=== PATIENT | female | born 1985 | race African-American/Black ===

== ENCOUNTER 2016-10-31 20:00 | Emergency (ER) | payer MEDICAID ==
[~2016-10-31] VITALS: Ht 162.6 cm; Wt 56.7 kg
[~2016-10-31 20:00] MED LIST: FLAGYL500 MG ORAL; KEFLEX500 MG ORAL; NKM
[2016-10-31] MEDS ORDERED: BENTYL10 MG ORAL (20:47)
--- NOTE | 2016-10-31 20:47 | Emergency Room Report ---
History of Present Illness General Chief Complaint: Abdominal Pain Source: Patient Present Illness HPI Patient is a 28-year-old female who presented after increased left lower abdominal pain. Patient gradual onset of symptoms of the past 3 days. She had associated increased constipation. She denied any recent fever. She reported having some recent. Patient denied any vomiting or diarrhea she denied any black or bloody stools. The patient's history of prior history of ovarian cyst. Patient to prior but no other abdominal surgery. The patient denied any other locations of pain. Allergies: Coded Allergies: No Known Allergies (Unverified , 10/31/16) Patient History Past Medical History: see triage record Last Menstrual Period: october 13 : 5 Para: 2 Reviewed Nursing Documentation: PMH: Agreed, PSxH: Agreed Nursing Documentation-PMH Past Medical History: No Stated History Review of Systems All Other Systems: negative except mentioned in HPI Physical Exam Vital Signs Date Time Temp Pulse Resp B/P Pulse Ox O2 Delivery O2 Flow Rate FiO2 10/31/16 20:10 97.9 80 16 123/77 99 Room Air Sp02 EP Interpretation: reviewed, normal General Appearance: normal inspection, well appearing, no apparent distress, alert, GCS 15 Head: atraumatic ENT: normal ENT inspection, hearing grossly normal, normal voice Neck: normal inspection, full range of motion, supple, no bony tend Respiratory: normal inspection, lungs clear, normal breath sounds, no respiratory distress, no retraction, no wheezing Cardiovascular #1: regular rate, rhythm, no edema Gastrointestinal: normal inspection, normal bowel sounds, non tender, soft, no guarding, no hernia Genitourinary: no CVA tenderness Musculoskeletal: normal inspection, back normal, normal range of motion Neurologic: normal inspection, alert, oriented x3, responsive, appliquer zigzag III-XII nml as tested, motor strength/tone normal, speech normal Psychiatric: normal inspection, judgement/insight normal, mood/affect normal Skin: normal inspection, normal color, no rash Medical Decision Making Diagnostic Impression: Primary Impression: Abdominal pain Additional Impression: Ovarian cyst ER Course Patient presented for abdominal pain. Differential diagnoses included ischemic bowel, appendicitis, perforated viscus, abdominal aortic aneurysm, inferior myocardial infarction, viral gastroenteritis Because of complexity of patient's case laboratory testing and imaging studies were ordered.The laboratory testing was otherwise unremarkable.The pelvic ultrasound showed a 1 cm ovarian cyst with small amount of pelvic fluid . The patient noted have an otherwise benign exam. Patient was given prescription for ibuprofen and Bentyl. The patient is advised to follow up with [facility] in 1- 2 days. Patient is advised to return if any worsening condition or if any changes in status that are concerning. Labs Test 10/31/16 20:33 10/31/16 21:00 Urine Color Yellow Urine Appearance Clear Urine pH 6 (4.5-8.0) Urine Specific [place] 1.020 (1.005-1.035) Urine Protein Negative (NEGATIVE) Urine Glucose (UA) Negative (NEGATIVE) Urine Ketones Negative (NEGATIVE) Urine Occult Blood Negative (NEGATIVE) Urine Nitrite Negative (NEGATIVE) Urine Bilirubin Negative (NEGATIVE) Urine Urobilinogen 1 MG/DL (0.0-1.0) Urine Leukocyte Esterase Negative (NEGATIVE) Urine HCG, Qualitative Negative White Blood Count 7.8 K/UL (4.8-10.8) Red Blood Count 3.82 M/UL (4.20-5.40) Hemoglobin 12.6 G/DL (12.0-16.0) Hematocrit 37.3 % (37.0-47.0) Mean Corpuscular Volume 98 FL (80-99) Mean Corpuscular Hemoglobin 32.9 PG (27.0-31.0) Mean Corpuscular Hemoglobin Concent 33.7 G/DL (32.0-36.0) Red Cell Distribution Width 12.1 % (11.6-14.8) Platelet Count 209 K/UL (150-450) Mean Platelet Volume 7.8 FL (6.5-10.1) Neutrophils (%) (Auto) 50.7 % (45.0-75.0) Lymphocytes (%) (Auto) 33.7 % (20.0-45.0) Monocytes (%) (Auto) 8.1 % (1.0-10.0) Eosinophils (%) (Auto) 6.5 % (0.0-3.0) Basophils (%) (Auto) 1.0 % (0.0-2.0) Sodium Level 137 mEQ/L (135-145) Potassium Level 3.8 mEQ/L (3.4-4.9) Chloride Level 97 mEQ/L (98-107) Carbon Dioxide Level 27 mEQ/L (20-30) Anion Gap 13 (5-15) Blood Urea Nitrogen 12 mg/dL (7-23) Creatinine 1.1 mg/dL (0.5-0.9) Estimat Glomerular Filtration Rate > 60 mL/min (>60) Glucose Level 96 mg/dL (74-106) Calcium Level 8.8 mg/dL (8.6-10.2) Total Bilirubin < 0.2 mg/dL (0.0-1.2) Aspartate Amino Transf (AST/SGOT) 12 U/L (5-40) Alanine Aminotransferase (ALT/SGPT) 7 U/L (3-33) Alkaline Phosphatase 57 U/L (35-104) Total Protein 6.6 g/dL (6.6-8.7) Albumin 3.8 g/dL (3.5-5.2) Globulin 2.8 g/dL Albumin/Globulin Ratio 1.3 (1.0-2.7) Lipase 56 U/L (< 60) Last Vital Signs Date Time Temp Pulse Resp B/P Pulse Ox O2 Delivery O2 Flow Rate FiO2 10/31/16 20:10 97.9 80 16 123/77 99 Room Air Status: improved Disposition: HOME, SELF-CARE Condition: Stable Scripts Ibuprofen* (MOTRIN*) 600 Mg Tablet 600 MG ORAL Q8H Y for For Pain, #30 TAB 0 Refills Prov: Raymundo Allan 10/31/16 Dicyclomine Hcl* (BENTYL*) 10 Mg Capsule 10 MG ORAL FOUR TIMES A DAY, #20 CAP Prov: Raymundo Allan 10/31/16 Raymundo Allan October 31, 2016 20:47
[2016-10-31 20:56] LABS: APPEARANCE,URINE CLEAR; KETONES,URINE NEGATIVE (NEGATIVE); LEUKOCYTE ESTERASE ,URINE NEGATIVE (NEGATIVE); NITRITE,URINE NEGATIVE (NEGATIVE); PH,URINE 6 (4.5-8.0); PROTEIN,URINE NEGATIVE (NEGATIVE); UROBILINOGEN,URINE 1 MG/DL (0.0-1.0)
[2016-10-31 21:30] LABS: EOSINOPHILS % (AUTO) 6.5 % (0.0-3.0); LYMPHOCYTES % (AUTO) 33.7 % (20.0-45.0); MEAN CORPUSCULAR HEMOGLOBIN 32.9 PG (27.0-31.0); MEAN CORPUSCULAR HGB CONC 33.7 G/DL (32.0-36.0); MEAN CORPUSCULAR VOLUME 98 FL (80-99); MEAN PLATELET VOLUME 7.8 FL (6.5-10.1); MONOCYTES % (AUTO) 8.1 % (1.0-10.0); NEUTROPHILS % (AUTO) 50.7 % (45.0-75.0); PLATELET COUNT 209 K/UL (150-450); RED BLOOD COUNT 3.82 M/UL (4.20-5.40); RED CELL DISTRIBUTION WIDTH 12.1 % (11.6-14.8); WHITE BLOOD COUNT 7.8 K/UL (4.8-10.8)
[2016-10-31 21:41] LABS: ALANINE AMINOTRANSFERASE 7 U/L (3-33); ALBUMIN/GLOBULIN RATIO 1.3 (1.0-2.7); ANION GAP 13 (5-15); ASPARTATE AMINO TRANSFERASE 12 U/L (5-40); CALCIUM 8.8 mg/dL (8.6-10.2); CARBON DIOXIDE 27 mEQ/L (20-30); CHLORIDE 97 mEQ/L (98-107); CREATININE 1.1 mg/dL (0.5-0.9); GLOMERULAR FILTRATION RATE > 60 mL/min (>60); HEMOLYSIS 4; LIPASE 56 U/L (< 60); POTASSIUM 3.8 mEQ/L (3.4-4.9); SODIUM 137 mEQ/L (135-145); TOTAL PROTEIN 6.6 g/dL (6.6-8.7)
[2016-10-31] MEDS ORDERED: IBUPROFEN600 MG ORAL (22:02)
[2016-10-31 22:13] VITALS: BP 123/77
--- NOTE | 2016-11-01 12:39 | Diagnostic Imaging Report ---
Indications: Pelvic pain, LMP 10/07/2016 Technique: Transabdominal and transvaginal real-time grayscale and duplex Doppler imaging of the pelvis was performed. Findings: Comparison: CT abdomen pelvis 03/26/16 Uterus measures 8.1 x 4.3 x 3.6cm. It demonstrates normal contour and myometrial echotexture without focal abnormality. The endometrial complex measures 7 mm in diameter. It contains a linear echogenic shadowing focus centrally but is otherwise unremarkable in appearance.. Small cysts are present the cervix. Bone free fluid is present in the cul-de-sac. Right ovary measures 3.1 x 2.6 x 1.4 cm. It contains one or more small peripheral follicles. Duplex Doppler imaging demonstrates normal blood flow. No extra-ovarian abnormality is seen. Left ovary measures 3 x 1.8 x 1.7 cm. It contains a dominant cystic structure measuring 1 cm diameter, several additional small peripheral follicles. Duplex Doppler imaging demonstrates normal blood flow. No extra-ovarian abnormality is seen. IMPRESSION: 1 cm left ovarian cystic structure, likely dominant follicle/physiologic cyst IUD in uterine endometrial canal Cervical nabothian cysts Small amount pelvic free fluid, nonspecific, may be physiologic
== END 2016-10-31 22:19 | disposition home or self-care (01) ==
LOC: EMR 20:55
DX: R10.32 Left lower quadrant pain (principal); N83.202 Unspecified ovarian cyst, left side; Z97.5 Presence of (intrauterine) contraceptive device; N88.8 Other specified noninflammatory disorders of cervix uteri
CPT/HCPCS: 36415; 76830; 76856; 80053; 81003; 81025; 83690; 85025; 99284

== ENCOUNTER 2016-11-29 17:33 | Emergency (ER) | payer MEDICAID ==
[~2016-11-29] VITALS: Ht 162.6 cm; Wt 52.2 kg
[~2016-11-29 17:33] MED LIST changes: +BENTYL10 MG ORAL; +IBUPROFEN600 MG ORAL
[2016-11-29] MEDS ORDERED: Norco 5mg/325mg tab ORAL ONE (18:00)
[2016-11-29] MEDS ORDERED: IBUPROFEN600 MG ORAL (18:58)
[2016-11-29] MEDS ORDERED: NORCO 5-325 TA1 EAC1 ORAL (18:58)
[2016-11-29 19:12] VITALS: BP 126/82
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
--- NOTE | 2016-11-30 12:03 | Diagnostic Imaging Report ---
Indication: Pain 3 views of the right knee were obtained. Findings: No acute fracture, malalignment, or joint effusion are identified. Joint space is relatively well-maintained. Small sclerotic focus noted in the lateral femoral condyle. This is probably a bone island. Bone mineralization is within normal limits for age. Impression: Negative exam
== END 2016-11-29 19:15 | disposition home or self-care (01) ==
LOC: EMR 18:02
DX: S83.91XA Sprain of unspecified site of right knee, initial encounter (principal); Y04.0XXA Assault by unarmed brawl or fight, initial encounter; Y92.89 Other specified places as the place of occurrence of the external cause
CPT/HCPCS: 29530; 99284

== ENCOUNTER 2017-11-30 19:46 | Emergency (ER) | payer MEDICAID ==
[~2017-11-30] VITALS: Ht 162.6 cm; Wt 57.2 kg
[~2017-11-30 19:46] MED LIST changes: +NORCO 5-325 TA1 EAC1 ORAL
[2017-11-30 21:13] LABS: APPEARANCE,URINE CLEAR; BILIRUBIN, URINE NEGATIVE (NEGATIVE); COLOR,URINE PALE YELLOW; GLUCOSE, URINE (UA) NEGATIVE (NEGATIVE); KETONES,URINE NEGATIVE (NEGATIVE); LEUKOCYTE ESTERASE ,URINE 2+ (NEGATIVE); NITRITE,URINE NEGATIVE (NEGATIVE); PH,URINE 6 (4.5-8.0); PROTEIN,URINE NEGATIVE (NEGATIVE); UROBILINOGEN,URINE NORMAL MG/DL (0.0-1.0)
--- NOTE | 2017-11-30 21:17 | Emergency Room Report ---
History of Present Illness General Chief Complaint: Vaginal Source: Medical Record Present Illness HPI 32-year-old female presents to the emergency department complaining of onset vaginal discharge since yesterday. Patient denies pain she reports several mild cramps and states that she is due for her and she'll cycle. Patient denies recent unprotected intercourse, external vaginal lesions, rashes, swollen tender lymph nodes, joint pain, fevers, chills him a dysuria, hematuria , urinary frequency or urgency. She denies at this time she denies nausea or vomiting. She also denies constipation or diarrhea. Allergies: Coded Allergies: No Known Allergies (Unverified , 10/31/16) Patient History Past Medical History: see triage record Past Surgical History: none Pertinent Family History: none Last Menstrual Period: 11/01/17 Now: No Reviewed Nursing Documentation: PMH: Agreed; PSxH: Agreed Nursing Documentation-PMH Past Medical History: No History, Except For Hx Neurological Problems: No - Ovarian cyst Review of Systems All Other Systems: negative except mentioned in HPI Physical Exam Vital Signs Date Time Temp Pulse Resp B/P (MAP) Pulse Ox O2 Delivery O2 Flow Rate FiO2 11/30/17 20:24 98.1 84 16 108/63 98 Room Air 98.1 Sp02 EP Interpretation: reviewed, normal General Appearance: no apparent distress, alert, GCS 15, non-toxic Head: normocephalic, atraumatic ENT: hearing grossly normal, normal voice Neck: full range of motion Respiratory: lungs clear, normal breath sounds, speaking full sentences Cardiovascular #1: regular rate, rhythm Gastrointestinal: normal bowel sounds, non tender, soft, non-distended, no guarding Genitourinary: normal inspection, no CVA tenderness, other - scant milky white d/c, some odor, dark red blood ( scant) in vaginal vault. no CMT. Musculoskeletal: back normal, gait/station normal, normal range of motion, non- tender Neurologic: alert, oriented x3, responsive, motor strength/tone normal, sensory intact, normal gait, speech normal, grossly normal Psychiatric: judgement/insight normal Skin: normal color, no rash, warm/dry, well hydrated Lymphatic: no adenopathy Medical Decision Making PA Attestation Dr. mo is my supervising Physician whom patient management has been discussed with. Diagnostic Impression: Primary Impression: Bacterial vaginosis ER Course 32-year-old female presents to the emergency department complaining of onset vaginal discharge since yesterday. Patient denies pain she reports several mild cramps and states that she is due for her and she'll cycle. Patient denies recent unprotected intercourse, external vaginal lesions, rashes, swollen tender lymph nodes, joint pain, fevers, chills him a dysuria, hematuria , urinary frequency or urgency. She denies at this time she denies nausea or vomiting. She also denies constipation or diarrhea. Ddx considered but are not limited to UTi , Pyelo, STI, Stone, Cystitis, vaginal laceration, vaginitis. Vital signs: are WNL, pt. is afebrile H& PE are most consistent with: Vaginitis ORDERS: - UA labs are attached - RBC's consistent with menstruation -Urine HCG: Negative - Wet Mount :Clue Cells = BV ED INTERVENTIONS: DISCHARGE: At this time pt. is stable for d/c to home. Will provide printed patient care instructions, and any necessary prescriptions. Care plan and follow up instructions have been discussed with the patient prior to discharge. discussed with the patient prior to discharge. Labs Test 11/30/17 20:50 Urine Color Pale yellow Urine Appearance Clear Urine pH 6 (4.5-8.0) Urine Specific [place] 1.010 (1.005-1.035) Urine Protein Negative (NEGATIVE) Urine Glucose (UA) Negative (NEGATIVE) Urine Ketones Negative (NEGATIVE) Urine Occult Blood 2+ (NEGATIVE) Urine Nitrite Negative (NEGATIVE) Urine Bilirubin Negative (NEGATIVE) Urine Urobilinogen Normal MG/DL (0.0-1.0) Urine Leukocyte Esterase 2+ (NEGATIVE) Urine RBC 5-10 /HPF (0 - 2) Urine WBC 2-4 /HPF (0 - 2) Urine Squamous Epithelial Cells Few /LPF (NONE/OCC) Urine Bacteria Few /HPF (NONE) Urine HCG, Qualitative Negative (NEGATIVE) Last Vital Signs Date Time Temp Pulse Resp B/P (MAP) Pulse Ox O2 Delivery O2 Flow Rate FiO2 11/30/17 20:24 98.1 84 16 108/63 98 Room Air 98.1 Disposition: HOME, SELF-CARE Condition: Stable Scripts Metronidazole* (FLAGYL*) 500 Mg Tablet 500 MG ORAL BID for 5 Days, #10 TAB Prov: Rhoda Mayfield P.A. 11/30/17 Referrals: NOT CHOSEN IPA/,REFERRING (PCP) Patient Instructions: Bacterial Vaginosis, [id number] Additional Instructions: Take medications as directed. Follow up with a Primary Care Provider in 3-5 days, even if your symptoms have resolved. --Please review list of primary care clinics, if you do not already have a primary care provider Return sooner to ED if new symptoms occur, or current symptoms become worse. - Please note that this Emergency Department Report was dictated using [employer] security technology software, occasionally this can lead to erroneous entry secondary to interpretation by the dictation equipment. Rhoda Mayfield Nov 30, 2017 21:17
[2017-11-30] MEDS ORDERED: METRONIDAZOLE500 MG ORAL (21:33)
[2017-11-30 21:44] VITALS: BP 108/63
== END 2017-11-30 21:45 | disposition home or self-care (01) ==
LOC: EMR 20:17
DX: N76.0 Acute vaginitis (principal); B96.89 Other specified bacterial agents as the cause of diseases classified elsewhere
CPT/HCPCS: 81003; 81025; 87210; 99283

== ENCOUNTER 2017-12-10 22:45 | Emergency (ER) | payer MEDICAID ==
[~2017-12-10] VITALS: Ht 162.6 cm; Wt 59.0 kg
[~2017-12-10 22:45] MED LIST changes: +METRONIDAZOLE500 MG ORAL
[2017-12-10 22:55] VITALS: BP 122/75
[2017-12-10] MEDS ORDERED: FLUCONAZOLE150 MG ORAL (23:14)
[2017-12-10 23:17] VITALS: BP 122/75
--- NOTE | 2017-12-11 02:48 | Emergency Room Report ---
History of Present Illness General Chief Complaint: Vaginal Source: Patient Present Illness HPI 32-year-old female presents to ED complaining of vaginal discharge 2 days. Notes a white discharge. States that she was seen here last week for discharge at the time. States they took a sample and put her on antibiotics. States she completed antibiotics and states that shortly after she developed a different type of discharge. States it is itchy. Denies any dysuria or hematuria. Denies any recent unprotected sexual activity. No other aggravating relieving factors. Denies any other associated symptoms Allergies: Coded Allergies: No Known Allergies (Unverified , 10/31/16) Patient History Past Medical History: none Past Surgical History: none Pertinent Family History: none Social History: Denies: smoking, alcohol use, drug use Last Menstrual Period: November Now: No Immunizations: UTD Reviewed Nursing Documentation: PMH: Agreed; PSxH: Agreed Nursing Documentation-PMH Hx Neurological Problems: No - Ovarian cyst Review of Systems All Other Systems: negative except mentioned in HPI Physical Exam Vital Signs Date Time Temp Pulse Resp B/P (MAP) Pulse Ox O2 Delivery O2 Flow Rate FiO2 12/10/17 22:47 98.0 75 16 122/75 96 Room Air 98.1 Sp02 EP Interpretation: reviewed, normal General Appearance: no apparent distress, alert, GCS 15, non-toxic Head: normocephalic, atraumatic Eyes: bilateral eye normal inspection, bilateral eye PERRL ENT: hearing grossly normal, normal pharynx, no angioedema, normal voice Neck: full range of motion, supple/symm/no masses Respiratory: chest non-tender, lungs clear, normal breath sounds, speaking full sentences Cardiovascular #1: regular rate, rhythm, no edema Cardiovascular #2: 2+ carotid (R), 2+ carotid (L), 2+ radial (R), 2+ radial (L) , 2+ dorsalis pedis (R), 2+ dorsalis pedis (L) Gastrointestinal: normal bowel sounds, non tender, soft, non-distended, no guarding, no rebound Rectal: deferred Genitourinary: normal inspection, no CVA tenderness Musculoskeletal: back normal, gait/station normal, normal range of motion, non- tender Neurologic: alert, oriented x3, responsive, motor strength/tone normal, sensory intact, speech normal Psychiatric: judgement/insight normal, memory normal, mood/affect normal, no suicidal/homicidal ideation Reflexes: 3+ bicep (R), 3+ bicep (L), 3+ tricep (R), 3+ tricep (L), 3+ knee (R) , 3+ knee (L) Skin: normal color, no rash, warm/dry, well hydrated Lymphatic: no adenopathy Medical Decision Making Diagnostic Impression: Primary Impression: Vaginal discharge ER Course 32-year-old female presents ED complaining of vaginal discharge DifferentialSTD, yeast infection, cervicitis Patient placed on stretcher. After initial history and physical I reviewed EMR. Patient was seen here last week and had wet mount completed. Showed clue cells. Patient was subsequently discharged on Flagyl. UA was negative Given that her symptoms resolved and a different type of discharge develop shortly after likely yeast infection secondary to antibiotic use. Patient will be discharged on fluconazole. Recommend close follow-up with PMD Diagnosisvaginal discharge Stable and discharged to home with prescription for fluconazole. Follow-up with PMD. Return to ED if symptoms recur or worsen Last Vital Signs Date Time Temp Pulse Resp B/P (MAP) Pulse Ox O2 Delivery O2 Flow Rate FiO2 12/10/17 23:17 75 16 122/75 96 Room Air 12/10/17 22:55 98.1 98.1 Status: improved Disposition: HOME, SELF-CARE Condition: Stable Scripts Fluconazole (FLUCONAZOLE) 150 Mg Tablet 150 MG ORAL DAILY for 3 Days, #3 TAB Prov: Avery Call MD 12/10/17 Referrals: NON PHYSICIAN (PCP) Patient Instructions: Vaginal Yeast Infection, Adult Avery Call MD Dec 11, 2017 02:48
== END 2017-12-10 23:18 | disposition home or self-care (01) ==
LOC: EMR 23:17
DX: N89.8 Other specified noninflammatory disorders of vagina (principal)
CPT/HCPCS: 99283

== ENCOUNTER 2018-03-22 01:55 | Emergency (ER) | payer MEDICAID ==
[~2018-03-22] VITALS: Ht 162.6 cm; Wt 61.2 kg
[~2018-03-22 01:55] MED LIST changes: +FLUCONAZOLE150 MG ORAL
--- NOTE | 2018-03-22 02:14 | Emergency Room Report ---
History of Present Illness General Chief Complaint: Female Urogenital Problems Source: Patient Present Illness HPI Is a 33-year-old female with a history recurrent bacterial vaginosis. She presents with chief complaint of a discharge that is odorous. Onset today. No fever chills but no nausea no vomiting. She is sexually active. Denies any other complaint. No history of STDs per patient. No urinary complaint. No abdominal pain. Allergies: Coded Allergies: No Known Allergies (Unverified , 10/31/16) Patient History Past Medical History: see triage record, old chart reviewed Past Surgical History: other Pertinent Family History: none Social History: Denies: smoking Last Menstrual Period: 02/20/2018 Now: No - IUD Immunizations: other Reviewed Nursing Documentation: PMH: Agreed; PSxH: Agreed Nursing Documentation-PM Past Medical History: No History, Except For Hx Neurological Problems: No - Ovarian cyst Review of Systems Eye: Denies: eye pain, blurred vision ENT: Denies: ear pain, nose congestion, throat swelling Respiratory: Denies: cough, shortness of breath Cardiovascular: Denies: chest pain, palpitations Gastrointestinal: Denies: abdominal pain, diarrhea, nausea, vomiting Genitourinary: Reports: discharge Musculoskeletal: Denies: back pain, joint pain Skin: Denies: rash Neurological: Denies: headache, numbness Endocrine: Denies: increased thirst, increased urine Hematologic/Lymphatic: Denies: easy bruising All Other Systems: negative except mentioned in HPI Physical Exam Vital Signs Date Time Temp Pulse Resp B/P (MAP) Pulse Ox O2 Delivery O2 Flow Rate FiO2 03/22/18 01:56 98.0 79 16 125/75 98 Room Air 98.1 vitals normal Sp02 EP Interpretation: reviewed, normal General Appearance: well appearing, no apparent distress, alert Head: normocephalic, atraumatic Eyes: bilateral eye PERRL, bilateral eye EOMI ENT: hearing grossly normal, normal pharynx Neck: full range of motion, supple, no meningismus Respiratory: chest non-tender, lungs clear, normal breath sounds Cardiovascular #1: regular rate, rhythm, no murmur Gastrointestinal: normal bowel sounds, non tender, no mass, no organomegaly, no bruit, non-distended Genitourinary: other - Pelvic exam done with female nurse as registered safety engineer. External exam normal. Internal exam showed yellowish discharge with scant blood. No cervical motion tenderness and no adnexal tenderness. Musculoskeletal: back normal, gait/station normal, normal range of motion Psychiatric: mood/affect normal Skin: warm/dry Medical Decision Making Diagnostic Impression: Primary Impression: Trichomonal cervicitis Additional Impression: Bacterial vaginosis ER Course Patient presents with a discharge and has Trichomonas. Flagyl given. I also treat for gonorrhea and chlamydia here. Recommend outpatient testing for HIV, hepatitis, syphilis and other STDs. No evidence of an acute abdomen. No evidence of torsion or ectopic. No evidence of PID. We'll discharge home. Last Vital Signs Date Time Temp Pulse Resp B/P (MAP) Pulse Ox O2 Delivery O2 Flow Rate FiO2 03/22/18 01:56 98.0 79 16 125/75 98 Room Air 98.1 Status: improved Disposition: HOME, SELF-CARE Condition: Stable Referrals: NOT CHOSEN IPA/MD,REFERRING (PCP) Additional Instructions: Follow-up with your doctor in 7 days. Recommend outpatient testing for HIV, hepatitis, syphilis and other STDs. Return if worse. ADAN LOCKWOOD M.D. Mar 22, 2018 02:14
[2018-03-22 02:23] LABS: APPEARANCE,URINE CLEAR; BILIRUBIN, URINE NEGATIVE (NEGATIVE); COLOR,URINE PALE YELLOW; GLUCOSE, URINE (UA) NEGATIVE (NEGATIVE); KETONES,URINE NEGATIVE (NEGATIVE); LEUKOCYTE ESTERASE ,URINE NEGATIVE (NEGATIVE); NITRITE,URINE NEGATIVE (NEGATIVE); PH,URINE 7 (4.5-8.0); PROTEIN,URINE NEGATIVE (NEGATIVE); UROBILINOGEN,URINE NORMAL MG/DL (0.0-1.0)
[2018-03-22 02:25] VITALS: BP 125/75
[2018-03-22] MEDS ORDERED: metroNIDAZOLE 500mg tab ORAL ONE (02:45)
[2018-03-22] MEDS ORDERED: Azithromycin 250mg tab ORAL ONE (02:45)
[2018-03-22] MEDS ORDERED: Lidocaine 1% MPF 10mg/ml 5ml INJ ONE (02:45)
[2018-03-22 03:05] VITALS: BP 125/75
== END 2018-03-22 03:05 | disposition home or self-care (01) ==
LOC: EMR 02:10
DX: A59.09 Other urogenital trichomoniasis (principal); N76.0 Acute vaginitis; B96.89 Other specified bacterial agents as the cause of diseases classified elsewhere
CPT/HCPCS: 81003; 81025; 87210; 96372; 99283; J0696; Q0144

== ENCOUNTER 2018-08-01 01:27 | Emergency (ER) | payer MEDICAID ==
[~2018-08-01] VITALS: Ht 162.6 cm; Wt 59.0 kg
[2018-08-01 01:40] VITALS: BP 125/75
[2018-08-01] MEDS ORDERED: DIFLUCAN100 MG ORAL (02:04)
[2018-08-01] MEDS ORDERED: Fluconazole 100mg tab ORAL ONE (02:15)
[2018-08-01 02:23] LABS: APPEARANCE,URINE CLEAR; BILIRUBIN, URINE NEGATIVE (NEGATIVE); COLOR,URINE PALE YELLOW; GLUCOSE, URINE (UA) NEGATIVE (NEGATIVE); KETONES,URINE NEGATIVE (NEGATIVE); LEUKOCYTE ESTERASE ,URINE 1+ (NEGATIVE); NITRITE,URINE NEGATIVE (NEGATIVE); PH,URINE 5 (4.5-8.0); PROTEIN,URINE NEGATIVE (NEGATIVE); UROBILINOGEN,URINE NORMAL MG/DL (0.0-1.0)
[2018-08-01 02:50] VITALS: BP 125/75
--- NOTE | 2018-08-01 03:07 | Emergency Room Report ---
History of Present Illness General Chief Complaint: Vaginal Source: Patient Present Illness HPI Patient is a 33-year-old female presented after increased vaginal bleeding. Patient denies . She had prior history of IUD placement. She reports having painful intercourse and subsequently began having increased difficulty with dark bleeding. She denies any fever. She reports having some vaginal discharge. She denies any vomiting or . She reports having prior normal menses. Allergies: Coded Allergies: No Known Allergies (Unverified , 10/31/16) Patient History Past Medical History: see triage record Last Menstrual Period: 06/26/2018 Now: No Reviewed Nursing Documentation: PMH: Agreed; PSxH: Agreed Nursing Documentation-PMH Past Medical History: No History, Except For Hx Neurological Problems: No - Ovarian cyst Review of Systems All Other Systems: negative except mentioned in HPI Physical Exam Vital Signs Date Time Temp Pulse Resp B/P (MAP) Pulse Ox O2 Delivery O2 Flow Rate FiO2 08/01/18 01:36 98.1 82 16 125/75 98 Room Air General Appearance: well appearing, no apparent distress, alert, GCS 15 Head: normocephalic, atraumatic ENT: hearing grossly normal, normal voice Neck: full range of motion, supple Respiratory: normal inspection, no respiratory distress, speaking full sentences Gastrointestinal: normal inspection Genitourinary: normal inspection, ext genitalia/vag normal, uterus normal, other - thick white discharge Musculoskeletal: no calf tenderness Neurologic: normal gait Psychiatric: mood/affect normal Skin: no rash Medical Decision Making Diagnostic Impression: Primary Impression: Cervicitis ER Course Patient presented for vaginal discharge and bleeding. Differential diagnosis included was not limited to laceration, incomplete , ectopic, PID, abrasion among others. Patient has a benign exam and does not appear to require any further imaging or laboratory testing at this time. test was negative. Patient appear to have some evidence of yeast infection was given empiric treatment with Diflucan. She is given prescription for further dose. Is advised to follow-up with her food stand manager for further workup of abnormal bleeding. Labs Test 08/01/18 02:08 Urine Color Pale yellow Urine Appearance Clear Urine pH 5 (4.5-8.0) Urine Specific [place] 1.015 (1.005-1.035) Urine Protein Negative (NEGATIVE) Urine Glucose (UA) Negative (NEGATIVE) Urine Ketones Negative (NEGATIVE) Urine Blood Negative (NEGATIVE) Urine Nitrite Negative (NEGATIVE) Urine Bilirubin Negative (NEGATIVE) Urine Urobilinogen Normal MG/DL (0.0-1.0) Urine Leukocyte Esterase 1+ (NEGATIVE) Urine RBC 0-2 /HPF (0 - 2) Urine WBC 2-4 /HPF (0 - 2) Urine Squamous Epithelial Cells Few /LPF (NONE/OCC) Urine Bacteria Few /HPF (NONE) Urine HCG, Qualitative Negative (NEGATIVE) Last Vital Signs Date Time Temp Pulse Resp B/P (MAP) Pulse Ox O2 Delivery O2 Flow Rate FiO2 08/01/18 02:50 98.1 76 16 125/75 98 Room Air Status: improved Disposition: HOME, SELF-CARE Condition: Stable Scripts Fluconazole* (DIFLUCAN*) 100 Mg Tablet 100 MG ORAL DAILY, #1 TAB Prov: Raymundo Allan MD 08/01/18 Referrals: NON PHYSICIAN (PCP) Patient Instructions: Cervicitis, Vaginal Yeast Infection, Adult Raymundo Allan MD Aug 01, 2018 03:07
== END 2018-08-01 02:50 | disposition home or self-care (01) ==
LOC: EMR 02:06
DX: N72 Inflammatory disease of cervix uteri (principal)
CPT/HCPCS: 81003; 81025; 99283

== ENCOUNTER 2018-12-14 21:03 | Emergency (ER) | payer MEDICAID ==
[~2018-12-14] VITALS: Ht 162.6 cm; Wt 63.5 kg
[~2018-12-14 21:03] MED LIST changes: +DIFLUCAN100 MG ORAL
[2018-12-14 21:15] VITALS: BP 146/96
--- NOTE | 2018-12-14 21:17 | NUR ---
ED Nurse Note: FROM HOME WITH C/O INCREASING PRESSURE FEELING IN VAGINA AT 8/10 INTERMITTENTLY FOR PAST WEEK, NO BLEEDING, LMP WAS HEAVIER THAN NORMAL. PT WITH IUD X 6 YEARS, UNSURE OF HOW LONG ITS SUPPOSE TO BE IN PLACE.
--- NOTE | 2018-12-14 21:23 | Emergency Room Report ---
History of Present Illness General Chief Complaint: Vaginal Source: Patient Present Illness HPI This is a 33-year-old female with history of trichomonas in the past. She presents with chief complaint of pelvic pressure. This been ongoing on and off for 2 weeks. She had an ultrasound done by her security services manager a week ago. Still waiting for results. She came in today because she has increased urination. Today she felt a wet discharge. Not smell like urine. She no longer has sexual intercourse with a partner after she had trichomonas. Pain is crampy in nature. Nothing made it better. Urgency urination made it worse. Allergies: Coded Allergies: No Known Allergies (Unverified , 12/14/18) Patient History Past Medical History: see triage record, old chart reviewed Past Surgical History: none Pertinent Family History: none Social History: Denies: smoking Last Menstrual Period: 12-03-2018 Now: No Immunizations: other Reviewed Nursing Documentation: PMH: Agreed; PSxH: Agreed Nursing Documentation-PMH Hx Neurological Problems: No - Ovarian cyst Review of Systems Eye: Denies: eye pain, blurred vision ENT: Denies: ear pain, nose congestion, throat swelling Respiratory: Denies: cough, shortness of breath Cardiovascular: Denies: chest pain, palpitations Gastrointestinal: Denies: abdominal pain, diarrhea, nausea, vomiting Genitourinary: Reports: incontinence, urgency Musculoskeletal: Denies: back pain, joint pain Skin: Denies: rash Neurological: Denies: headache, numbness Endocrine: Denies: increased thirst, increased urine Hematologic/Lymphatic: Denies: easy bruising All Other Systems: negative except mentioned in HPI Physical Exam Vital Signs Date Time Temp Pulse Resp B/P (MAP) Pulse Ox O2 Delivery O2 Flow Rate FiO2 12/14/18 21:05 98.1 74 16 146/96 (113) 97 Room Air Vitals with high blood pressure Sp02 EP Interpretation: reviewed, normal General Appearance: well appearing, no apparent distress, alert Head: normocephalic, atraumatic Eyes: bilateral eye PERRL, bilateral eye EOMI ENT: hearing grossly normal, normal pharynx Neck: full range of motion, supple, no meningismus Respiratory: chest non-tender, lungs clear, normal breath sounds Cardiovascular #1: regular rate, rhythm, no murmur Gastrointestinal: normal bowel sounds, non tender, no mass, no organomegaly, no bruit, non-distended Genitourinary: other - Pelvic exam done with female nurse as glaze grinder. External exam normal. Internal exam with yellowish discharge. Musculoskeletal: back normal, gait/station normal, normal range of motion Psychiatric: mood/affect normal Skin: warm/dry Medical Decision Making Diagnostic Impression: Primary Impression: Bacterial vaginosis ER Course Patient presents with vaginal discharge consistent with bacterial vaginosis. She does do douching. This increases risk for bacterial vaginosis. Will discharge home. Last Vital Signs Date Time Temp Pulse Resp B/P (MAP) Pulse Ox O2 Delivery O2 Flow Rate FiO2 12/14/18 21:15 98.1 74 16 146/96 97 Room Air Status: unchanged Disposition: HOME, SELF-CARE Condition: Stable Scripts Metronidazole* (FLAGYL*) 500 Mg Tablet 500 MG ORAL BID, #14 TAB Prov: Michael Gary MD 12/14/18 Additional Instructions: Avoid douching. Follow-up with your doctor in 7 days. Return if symptoms worsen. Michael Gary MD Dec 14, 2018 21:23
[2018-12-14 21:33] LABS: APPEARANCE,URINE CLEAR; BILIRUBIN, URINE NEGATIVE (NEGATIVE); COLOR,URINE PALE YELLOW; GLUCOSE, URINE (UA) NEGATIVE (NEGATIVE); KETONES,URINE NEGATIVE (NEGATIVE); LEUKOCYTE ESTERASE ,URINE 2+ (NEGATIVE); NITRITE,URINE NEGATIVE (NEGATIVE); PH,URINE 7 (4.5-8.0); PROTEIN,URINE NEGATIVE (NEGATIVE); UROBILINOGEN,URINE NORMAL MG/DL (0.0-1.0)
[2018-12-14] MEDS ORDERED: METRONIDAZOLE500 MG ORAL (21:46)
--- NOTE | 2018-12-14 21:51 | NUR ---
ER DISCHARGE NOTE: Patient is cleared to be discharged per ERMD, pt is aox4, on room air, with stable vital signs. pt was given dc and prescription instructions, pt was able to verbalize understanding, pt id band removed. pt is able to ambulate with steady gait. pt took all belongings.
[2018-12-14 21:52] VITALS: BP 135/92
== END 2018-12-14 21:51 | disposition home or self-care (01) ==
LOC: EMR 21:24
DX: N76.0 Acute vaginitis (principal)
CPT/HCPCS: 81003; 81025; 87210; 99283

== ENCOUNTER 2019-08-24 17:00 | Emergency (ER) | payer SELFPAY ==
[~2019-08-24] VITALS: Ht 162.6 cm; Wt 67.6 kg
--- NOTE | 2019-08-24 17:39 | NUR ---
ED Nurse Note: Pt walked into ED w/ daughter w/ c/o sore throat, chest pain when coughing 01/07, body aches, constipation. Pt had BM today but felt it was hard. Pt is alert and orientedx4, ambulatory. Pt also has nausea but no vomiting.
[2019-08-24 17:41] VITALS: BP 125/78
--- NOTE | 2019-08-24 17:55 | Emergency Room Report ---
History of Present Illness General Chief Complaint: Sore Throat Source: Patient Present Illness HPI 34-year-old female with no significant past medical history here complaining of 3 days of cough and congestion. Patient reports that she was told that she has dental cavities, and needs to be sent to ear nose throat doctor as cavities have reached to the sinuses. Patient has bilateral maxillary sinus tenderness. Denies fever chills, recent travel, abdominal pain, nausea vomiting. Has not taken medication for symptom relief. Denies at this time. Allergies: Coded Allergies: No Known Allergies (Unverified , 12/14/18) Patient History Past Medical History: see triage record Past Surgical History: none Pertinent Family History: none Last Menstrual Period: now Now: No Immunizations: UTD Reviewed Nursing Documentation: PMH: Agreed; PSxH: Agreed Nursing Documentation-PMH Past Medical History: No Stated History Hx Neurological Problems: No - Ovarian cyst Review of Systems All Other Systems: negative except mentioned in HPI Physical Exam Vital Signs Date Time Temp Pulse Resp B/P (MAP) Pulse Ox O2 Delivery O2 Flow Rate FiO2 08/24/19 17:22 97.9 81 18 132/81 (98) 99 Room Air Sp02 EP Interpretation: reviewed, normal General Appearance: no apparent distress, alert, GCS 15, non-toxic Head: normocephalic, atraumatic Eyes: bilateral eye normal inspection, bilateral eye PERRL ENT: hearing grossly normal, normal pharynx, no angioedema, normal voice, other - Bilateral maxillary sinuses tender to palpation Neck: full range of motion, supple/symm/no masses Respiratory: chest non-tender, lungs clear, normal breath sounds, no rhonchi, speaking full sentences Cardiovascular #1: regular rate, rhythm, no edema, no murmur, normal capillary refill Gastrointestinal: non tender, soft Rectal: deferred Genitourinary: no CVA tenderness Musculoskeletal: back normal Neurologic: alert, motor strength/tone normal, oriented x3, sensory intact, responsive, speech normal Psychiatric: judgement/insight normal, memory normal, mood/affect normal, no suicidal/homicidal ideation Skin: no rash Lymphatic: no adenopathy Medical Decision Making PA Attestation All my diagnosis and treatment plans were reviewed ad discussed with my supervising physician Dr. Call Diagnostic Impression: Primary Impression: Sinusitis ER Course 34-year-old female with no significant past medical history here complaining of 3 days of cough and congestion. Patient reports that she was told that she has dental cavities, and needs to be sent to ear nose throat doctor as cavities have reached to the sinuses. Patient has bilateral maxillary sinus tenderness. Denies fever chills, recent travel, abdominal pain, nausea vomiting. Has not taken medication for symptom relief. Denies at this time. Ddx considered but are not limited to: strep pharyngitis, URI, tonsillitis, peritonsillar abscess, influneza, sinusitis Vital signs: are WNL, pt. is afebrile H&PE are most consistent with: Sinusitis most likely secondary to abscess formation with the patient dental cavities, ORDERS: Augmentin, Claritin-D, guaifenesin ED INTERVENTIONS: None required at this time. DISCHARGE: At this time pt. is stable for d/c to home. Will provide printed patient care instructions, and any necessary prescriptions. Care plan and follow up instructions have been discussed with the patient prior to discharge. Take medication as directed, follow-up with ear nose throat doctor, if worsening symptoms return to the emergency room Last Vital Signs Date Time Temp Pulse Resp B/P (MAP) Pulse Ox O2 Delivery O2 Flow Rate FiO2 08/24/19 17:41 98.5 81 18 125/78 96 Room Air Disposition: HOME, SELF-CARE Condition: Stable Scripts Loratadine/Pseudoephedrine (CLARITIN-D 12 HOUR TABLET) 1 Each Tab.er.12h 1 TAB ORAL EVERY 12 HOURS, #20 TAB Prov: Mack Rsusell 08/24/19 Guaifenesin* (GUAIFENESIN*) 100 Mg/5 Ml Liquid 5 ML ORAL Q6H, #120 ML 0 Refills Prov: Mack Russell 08/24/19 Amoxicillin/Potassium Clav 875-125* (AUGMENTIN 875-125 TABLET*) 1 Each Tablet 1 TAB ORAL TWICE A DAY for 10 Days, #20 TAB Prov: Mack Russell 08/24/19 Patient Instructions: Sinusitis, Adult, [id number] Additional Instructions: Take medication as directed, follow-up with primary care doctor, if worsening symptoms return to the emergency room Mack Russell Aug 24, 2019 17:55
[2019-08-24] MEDS ORDERED: AUGMENTIN 875-1 EAC1 ORAL (17:56)
[2019-08-24] MEDS ORDERED: GUAIFENESI100 MG/5 M ORAL (17:56)
[2019-08-24] MEDS ORDERED: CLARITIN-D 121 EAC1 ORAL (17:56)
[2019-08-24 18:25] VITALS: BP 104/77
== END 2019-08-24 18:45 | disposition home or self-care (01) ==
LOC: EMR 17:15
DX: J32.9 Chronic sinusitis, unspecified (principal)
CPT/HCPCS: 99282